=== PATIENT | female | born 1935 | race Caucasian/White ===

== ENCOUNTER 2017-08-11 14:22 | Inpatient (IN) | payer MEDICARE, OTHER ==
[2017-07-31 13:33] VITALS: BP 165/79
[~2017-08-11] VITALS: Ht 154.9 cm; Wt 132.8 kg
[~2017-08-11 14:22] MED LIST: ATOR10TA PO; BUPIVACAINE/PF 0.25% ONE; CELE200C PO; FURO-93 PO; OXYC1TAB7 PO; PHENYLEPHRINE 10 MG/ML ONE; SERT100T PO; TOLT1TAB4 PO
[2017-08-11] MEDS ORDERED: INDOCYANINE GREEN 25 MG VIAL ONE (16:02)
[2017-08-11] MEDS ORDERED: FENTANYL PF 100 MCG/2ML ONE ×3 (16:04→18:19)
[2017-08-11] MEDS ORDERED: MIDAZOLAM 1 MG/ML, 2ML ONE (16:04)
[2017-08-11] MEDS ORDERED: CEFAZOLIN 1,000 MG ONE ×2 (16:06)
[2017-08-11] MEDS ORDERED: DEXAMETHASONE 4 MG/ML, 1ML ONE (16:07)
[2017-08-11] MEDS ORDERED: ROCURONIUM 10 MG/ML ONE (16:07)
[2017-08-11] MEDS ORDERED: ONDANSETRON 2MG/ML, 2ML ONE (16:07)
[2017-08-11] MEDS ORDERED: PROPOFOL 10 MG/ML, 20ML ONE (16:07)
[2017-08-11] MEDS: LACTATED RINGERS 1,000 ML IV SCH ×2 (16:07→22:53)
[2017-08-11] MEDS ORDERED: SUCCINYLCHOLINE 20 MG/ML, 10ML ONE ×2 (16:07)
[2017-08-11] MEDS ORDERED: LIDOCAINE GEL 2%, 5ML ONE (16:08)
[2017-08-11] MEDS ORDERED: EPINEPHRINE 1 MG/ML, 1ML INFIL ONE (17:27)
[2017-08-11] MEDS ORDERED: MIDAZOLAM 1 MG/ML, 2ML IV PRN (17:30)
[2017-08-11] MEDS ORDERED: FENTANYL PF 100 MCG/2ML IV PRN (17:30)
[2017-08-11] MEDS ORDERED: LABETALOL 5MG/ML, 20ML IV PRN (17:30)
[2017-08-11] MEDS ORDERED: ACETAMINOPHEN 325 MG TABLET PO PRN (17:30)
[2017-08-11] MEDS ORDERED: ONDANSETRON 2MG/ML, 2ML IVPush PRN (17:30)
[2017-08-11] MEDS ORDERED: ALBUTEROL/IPRATROPIUM 2.5MG/0.5MG, 3 ML NPPB PRN (17:30)
[2017-08-11] MEDS ORDERED: PROMETHAZINE 25 MG/ML, 1ML IV PRN (17:30)
[2017-08-11] MEDS ORDERED: MEPERIDINE/PF 25MG/0.5ML IVPush PRN (17:30)
[2017-08-11] MEDS ORDERED: hydrALAzine 20 MG/ML, 1ML IV PRN (17:30)
[2017-08-11] MEDS ORDERED: SUGAMMADEX 200 MG/2 ML IVPush ONE (18:00)
[2017-08-11] MEDS: OXYcodone 5 MG/5 ML ORAL.SOL UDC PO PRN (18:40)
[2017-08-11] MEDS ORDERED: OXYcodone 5 MG/5 ML ORAL.SOL UDC ONE (18:43)
[2017-08-11] MEDS ORDERED: ACETAMINOPHEN 650 MG/20.3 ML UDC ONE (18:53)
[2017-08-11] MEDS ORDERED: HYDROmorphone 1 MG/ML, 1ML ONE (19:12)
[2017-08-11] MEDS: HYDROmorphone 1 MG/ML, 1ML IV PRN ×2 (19:14→19:35)
[2017-08-11] MEDS ORDERED: KETOROLAC 30 MG/1 ML ONE (20:51)
[2017-08-11] MEDS ORDERED: morphine SULFATE 10 MG/ML, 1ML IV PRN (21:00)
[2017-08-11] MEDS ORDERED: ONDANSETRON 4 MG TABLET PO PRN (21:00)
[2017-08-11] MEDS ORDERED: ONDANSETRON 2MG/ML, 2ML IV PRN (21:00)
[2017-08-11] MEDS ORDERED: KETOROLAC 30 MG/1 ML IV PRN ×2 (21:00→21:30)
[2017-08-11] MEDS ORDERED: SODIUM CHLORIDE 0.9% 500 ML IV PRN (21:30)
[2017-08-11] MEDS ORDERED: OXYcodone/APAP 7.5/325MG TABLET PO PRN (21:30)
[2017-08-11] MEDS: METOCLOPRAMIDE 10MG TABLET PO SCH ×2 (21:30→23:19)
[2017-08-12] MEDS: D5%-0.45NACL+KCL 20MEQ 1,000 ML IV SCH ×2 (00:28→08:00)
[2017-08-12 00:38] VITALS: BP 104/49
[2017-08-12] MEDS: METOCLOPRAMIDE 10MG TABLET PO SCH ×3 (04:47→11:22)
[2017-08-12 04:54] VITALS: BP 106/52
[2017-08-12 05:46] LABS: HEMATOCRIT 38.3 % (34.6-47.8); HEMOGLOBIN 12.8 g/dL (11.7-16.4); WHITE BLOOD COUNT 7.3 x10^3/uL (3.4-10)
[2017-08-12 06:04] LABS: BLOOD UREA NITROGEN 11 mg/dL (7-18)
[2017-08-12 07:52] VITALS: BP 124/64
[2017-08-12] MEDS: OXYcodone 5 MG/5 ML ORAL.SOL UDC PO PRN (10:48)
[2017-08-12 13:37] VITALS: BP 93/48
[2017-08-12] MEDS ORDERED: OXYC-306 PO (15:32)
[2017-08-12] MEDS ORDERED: METO10TA82 PO (15:32)
[2017-08-12] MEDS ORDERED: ONDA4TAB10 PO (15:36)
== END 2017-08-12 16:05 | disposition home or self-care (01) | DRG 739 ==
LOC: OR 14:22 → 4NOR 20:15 → OR 22:27
PROVIDERS: ADMIT Specialist; ATTEND Specialist
PROC: 0UT2FZZ Resection of Bilateral Ovaries, Via Natural or Artificial Opening With Percutaneous Endoscopic Assistance (ICD-10-PCS; 2017-08-11)
PROC: 0UT7FZZ Resection of Bilateral Fallopian Tubes, Via Natural or Artificial Opening With Percutaneous Endoscopic Assistance (ICD-10-PCS; 2017-08-11)
PROC: 07BC4ZX Excision of Pelvis Lymphatic, Percutaneous Endoscopic Approach, Diagnostic (ICD-10-PCS; 2017-08-11)
PROC: 8E0W4CZ Robotic Assisted Procedure of Trunk Region, Percutaneous Endoscopic Approach (ICD-10-PCS; 2017-08-11)
PROC: 0UT9FZZ Resection of Uterus, Via Natural or Artificial Opening With Percutaneous Endoscopic Assistance (ICD-10-PCS; principal; 2017-08-11 17:30)
DX: C54.1 Malignant neoplasm of endometrium (principal); J96.21 Acute and chronic respiratory failure with hypoxia; Z68.44 Body mass index [BMI] 60.0-69.9, adult; J96.11 Chronic respiratory failure with hypoxia; E66.01 Morbid (severe) obesity due to excess calories; E78.00 Pure hypercholesterolemia, unspecified; Z88.0 Allergy status to penicillin; Z88.2 Allergy status to sulfonamides; Z88.1 Allergy status to other antibiotic agents
CPT/HCPCS: 36415; 80048; 85025; 86850; 86900; 86923; 88112; 88305; 88307; 88309; 88329; 88331; 88333; 88342; 93005; J0171; J0690; J1100; J1170; J1885; J2250; J2405; J2704; J3010; J3490; G0461; J0330; J2370; J3480; J7040; J7120